=== PATIENT | male | born 1965 | race Caucasian/White ===

== ENCOUNTER 2017-08-01 06:02 | Inpatient (IN) ==
[~2017-08-01 06:02] MED LIST: ASPIRIN 325 MG TABLET PO ONE; DIAZEPAM 5 MG TABLET PO ONE; MAGNESIUM SULF RIDER 2 GM in PREMIX 1 EACH IV PRN; POTASSIUM CHLORIDE RIDER 10 MEQ in PREMIX 1 EACH IV PRN; SODIUM CHLORIDE 0.9% 1,000 ML IV SCH; diphenhydrAMINE CAP 25 MG CAPSULE PO ONE
[2017-08-01] MEDS ORDERED: diphenhydrAMINE CAP 25 MG CAPSULE ONE (07:15)
[2017-08-01] MEDS ORDERED: DIAZEPAM 5 MG TABLET ONE (07:15)
[2017-08-01] MEDS ORDERED: ASPIRIN 325 MG TABLET ONE (07:15)
[2017-08-01] MEDS ORDERED: MEPERIDINE 25 MG/1 ML VIAL ONE (07:27)
[2017-08-01] MEDS ORDERED: LIDOCAINE 1% 20 ML VIAL ONE (07:27)
[2017-08-01] MEDS ORDERED: MIDAZOLAM 2 MG/2 ML VIAL ONE (07:32)
[2017-08-01] MEDS ORDERED: HEPARIN 5,000 UNIT/1 ML VIAL ONE (07:43)
[2017-08-01] MEDS ORDERED: ONDANSETRON 4 MG/2 ML VIAL IV PRN (09:25)
[2017-08-01] MEDS ORDERED: ACETAMINOPHEN 325 MG TABLET PO PRN (09:25)
[2017-08-01] MEDS ORDERED: MAGNESIUM SULF RIDER 4 GM in PREMIX 1 EACH IV PRN (09:25)
[2017-08-01] MEDS ORDERED: MAGNESIUM SULF RIDER 2 GM in PREMIX 1 EACH IV PRN (09:25)
[2017-08-01] MEDS: PANTOPRAZOLE 40 MG TABLET PO SCH (10:42)
[2017-08-01] MEDS: CARVEDILOL 6.25 MG TABLET PO SCH ×2 (10:43→21:37)
[2017-08-01] MEDS ORDERED: ENOXAPARIN 30 MG/0.3 ML SYRINGE SUBCUT ONE (13:15)
[2017-08-01] MEDS ORDERED: MAGNESIUM HYDROXIDE SUSP 30 ML UDCUP PO PRN (17:17)
[2017-08-01] MEDS ORDERED: diphenhydrAMINE CAP 25 MG CAPSULE PO PRN (17:18)
[2017-08-01] MEDS: FAMOTIDINE 20 MG TABLET PO SCH (21:37)
[2017-08-02 04:59] LABS: Basophils # 0.1 10*3/uL (0.0-0.2); Basophils % 0.7 % (0.0-0.8); Eosinophils # 0.1 10*3/uL (0.0-0.87); Eosinophils % 0.7 % (0.00-10.9); Hematocrit 44.3 VOL% (42.0-52.0); Immature Granulocytes % 0.4 %; Immature Granulocytes Absolute 0.04 #; Lymphocytes # 2.7 10*3/uL (1.4-4.0); Mean Corpuscular HGB Conc 33.9 GM/DL (32-36); Mean Corpuscular Hemoglobin 30 PG (27-34); Mean Platelet Volume 10.3 FL (9.6-12.0); Monocytes # 0.9 10*3/uL (0.11-0.8); Monocytes % 9.7 % (1.7-12.7); Neutrophils # 5.8 10*3/uL (1.4-7.4); Neutrophils % 60.5 % (38.7-73.9); Platelet Count 220 T/CUMM (130-400); Red Blood Count 5.09 MC/CUMM (3.8-5.5); Red Cell Distribution Width 13.1 % (9.3-17.3); White Blood Count 9.5 T/CUMM (4-12)
[2017-08-02 05:38] LABS: Albumin 3.9 G/DL (3.4-5.0); Bilirubin,Total 1.2 MG/DL (0.2-1.0); Calcium 8.8 MG/DL (8.5-10.1); Osmolality,Calculated 282.1 MOS/KG (273-304); Potassium 3.9 MMOL/L (3.5-5.1); Total Protein 6.8 G/DL (6.4-8.3)
[2017-08-02] MEDS: FAMOTIDINE 20 MG TABLET PO SCH (08:52)
[2017-08-02] MEDS: PANTOPRAZOLE 40 MG TABLET PO SCH (08:52)
[2017-08-02] MEDS: CARVEDILOL 6.25 MG TABLET PO SCH (08:52)
[2017-08-02] MEDS ORDERED: amLODIPine 5 MG TABLET PO SCH (09:00)
[2017-08-02] MEDS ORDERED: ROSUVASTATIN 10 MG TABLET PO SCH (09:00)
[2017-08-02] MEDS ORDERED: ASPIRIN 325 MG TABLET PO SCH (09:00)
[2017-08-02] MEDS ORDERED: ENOXAPARIN 40 MG/0.4 ML SYRINGE SUBCUT SCH (09:00)
[2017-08-02 12:12] VITALS: BP 133/75
[2017-08-02] MEDS ORDERED: ROSUVASTATIN 20 MG TABLET PO SCH (12:48)
[2017-08-02] MEDS ORDERED: NITROGLYCERIN SL 0.4 MG TABLET SL PRN (12:52)
[2017-08-02] MEDS ORDERED: LOSARTAN 25 MG TABLET PO SCH (21:00)
[2017-08-03] MEDS ORDERED: LOSARTAN 50 MG TABLET PO SCH (09:00)
[2017-08-06] MEDS ORDERED: CEFUROXIME INJ 1,500 MG in SYRINGE 1 EACH IV ONE (06:00)
== END 2017-08-02 14:30 | disposition home or self-care, planned readmission (81) | DRG 287 ==
LOC: N.CL 06:02 → N.TELEN 08:52
PROVIDERS: ADMIT Internal Medicine Cardiovascular Disease; ATTEND Internal Medicine Cardiovascular Disease
PROC: CLCCHCL (ICD-10-PCS; 2017-08-01 07:45)

== ENCOUNTER 2017-08-06 06:07 | Inpatient (IN) ==
[2017-08-02 16:32] LABS: PT Patient Result 10.5 SECS; Partial Thromboplastin Time 28.4 SECS (0-40)
[2017-08-02 17:16] LABS: Apearance,Urine CLEAR (Clear); Bilirubin,Urine Negative (Negative); Blood, Urine Small mg/dL (Negative); Glucose,Urine (UA) Negative (Negative); Ketones,Urine Negative (Negative); Mucus,Urine Occasional /LPF (Occasional); Nitrite,Urine Negative (Negative); Protein,Urine Negative; RBC,Urine 1 /HPF (0-4); Squamous Epithelial Cell,Urine Occasional /HPF (0-10); Urine Color Yellow (Yellow); Urine Specific Gravity 1.018 (1.001-1.035); Urine Urobilinogen < 2.0 EU/DL (0.2-1.0); WBC,Urine 1 /HPF (0-6)
[~2017-08-06 06:07] MED LIST changes: -ASPIRIN 325 MG TABLET PO ONE; +FAMOTIDINE 20 MG TABLET PO ONE; -MAGNESIUM SULF RIDER 2 GM in PREMIX 1 EACH IV PRN; +PAPAVERINE 60 MG/2 ML VIAL ONE; -POTASSIUM CHLORIDE RIDER 10 MEQ in PREMIX 1 EACH IV PRN; +SODIUM CHLORIDE 0.9% 1,000 ML IV PRN; -SODIUM CHLORIDE 0.9% 1,000 ML IV SCH; +TISSUE ADHESIVE 1 EACH APPLICATOR TOP ONE; +VANCOMYCIN 1,000 MG VIAL ONE; -diphenhydrAMINE CAP 25 MG CAPSULE PO ONE
[2017-08-06] MEDS ORDERED: SODIUM CHLORIDE 0.9% 1,000 ML IV PRN (06:19)
[2017-08-06] MEDS ORDERED: DIAZEPAM 5 MG TABLET ONE (06:36)
[2017-08-06] MEDS ORDERED: FAMOTIDINE 20 MG TABLET ONE (06:36)
[2017-08-06] MEDS ORDERED: CEFUROXIME 1,500 MG VIAL ONE (07:05)
[2017-08-06 07:44] LABS: ABG Base Excess 0.5 MMOL/L (-2.5-2.5); ABG HCO3 24.9 MMOL/L (20-26); ABG PCO2 56.9 MM HG (35-48); ABG PH 7.306 (7.35-7.45); ABG TCO2 24.7 MMOL/L (23-27); Glucose Heart Surgery 112 MG/DL (74-106); Hematocrit Heart Surgery 43.8 PERCENT (42-52); Hemoglobin Heart Surgery 14.3 G/DL (14.0-18.0); PCO2 Patient Temp Arterial 56.9 MMHG; PH Patient Temp Arterial 7.306; Patient Temperature 37 CELCIUS; Potassium Heart/CVR 3.5 MMOL/L (3.5-5.1); Sodium Heart/CVR 142 MMOL/L (135-145)
[2017-08-06 07:46] LABS: ABG Oxygen Saturation 99.5 % (95-100)
[2017-08-06 07:52] LABS: Apearance,Urine CLEAR (Clear); Bilirubin,Urine Negative (Negative); Blood, Urine Small mg/dL (Negative); Glucose,Urine (UA) Negative (Negative); Ketones,Urine 5 mg/dL (Negative); Mucus,Urine Occasional /LPF (Occasional); Nitrite,Urine Negative (Negative); Protein,Urine Negative; RBC,Urine 7 /HPF (0-4); Urine Color Yellow (Yellow); Urine Specific Gravity 1.026 (1.001-1.035); WBC,Urine 1 /HPF (0-6)
[2017-08-06] MEDS ORDERED: CALCIUM CHLORIDE 1,000 MG/10 ML SYRINGE IV ONE (08:14)
[2017-08-06] MEDS ORDERED: POTASSIUM CHLORIDE RIDER 100 ML IV ONE (08:14)
[2017-08-06] MEDS ORDERED: EPINEPHrine 1 MG/10 ML SYRINGE ONE (08:14)
[2017-08-06] MEDS ORDERED: ALBUMIN 5% 12.5 GM/250 ML VIAL IV ONE (08:14)
[2017-08-06] MEDS ORDERED: SODIUM BICARBONATE 50 MEQ/50 ML SYRINGE IV ONE ×2 (08:14→11:13)
[2017-08-06 10:03] LABS: PCO2 Patient Temp Venous 37.3 MM HG; PH Patient Temp Venous 7.442; PO2 Patient Temp Venous 44.2 MM HG; Potassium Heart/CVR 3.9 MMOL/L (3.5-5.1); VBG Base Excess 1.5 MEQ/L (0-4); VBG HCO3 25.6 MEQ/L (24-28); VBG PCO2 41.1 MMHG (41-51); VBG PH 7.413; VBG PO2 50.7 MMHG (17-40)
[2017-08-06] MEDS ORDERED: THROMBIN TOPICAL (RECOMBINANT) 5,000 UNIT VIAL TOP ONE ×2 (10:15→11:30)
[2017-08-06 10:35] LABS: Hematocrit Heart Surgery 31.6 PERCENT (42-52); Hemoglobin Heart Surgery 10.2 G/DL (14.0-18.0); PCO2 Patient Temp Venous 36.6 MM HG; PH Patient Temp Venous 7.459; PO2 Patient Temp Venous 41.2 MM HG; Potassium Heart/CVR 4.2 MMOL/L (3.5-5.1); VBG Base Excess 2.3 MEQ/L (0-4); VBG HCO3 26.1 MEQ/L (24-28); VBG Oxygen Saturation 80.3 %; VBG PCO2 36.6 MMHG (41-51); VBG PH 7.459; VBG PO2 41.2 MMHG (17-40)
[2017-08-06 11:03] LABS: Hemoglobin Heart Surgery 11.1 G/DL (14.0-18.0); PCO2 Patient Temp Venous 35.1 MM HG; PH Patient Temp Venous 7.466; PO2 Patient Temp Venous 42.5 MM HG; VBG Base Excess 1.3 MEQ/L (0-4); VBG HCO3 24.7 MEQ/L (24-28); VBG Oxygen Saturation 78.7 %; VBG PCO2 35.1 MMHG (41-51); VBG PH 7.466; VBG PO2 42.5 MMHG (17-40)
[2017-08-06] MEDS ORDERED: methylPREDNISolone SOD SUC 1,000 MG/8 ML VIAL ONE (11:13)
[2017-08-06] MEDS ORDERED: HEPARIN 10,000 UNIT/10 ML VIAL ONE (11:13)
[2017-08-06] MEDS ORDERED: MAGNESIUM SULFATE 1 GM/2 ML VIAL ONE (11:13)
[2017-08-06] MEDS ORDERED: ALBUMIN 25% 25 GM/100 ML VIAL IV ONE (11:13)
[2017-08-06] MEDS ORDERED: DEXTROSE 5% KCL 20 MEQ 20 MEQ/1,000 ML BAG IV ONE (11:13)
[2017-08-06] MEDS ORDERED: PROTAMINE SULFATE 250 MG/25 ML VIAL IV ONE (11:13)
[2017-08-06] MEDS ORDERED: FUROSEMIDE 20 MG/2 ML VIAL ONE (11:14)
[2017-08-06] MEDS ORDERED: PROTAMINE SULFATE 50 MG/5 ML VIAL IV ONE (11:14)
[2017-08-06] MEDS ORDERED: PHENYLEPHRINE 10 MG/1 ML VIAL IV ONE ×2 (11:14→12:37)
[2017-08-06] MEDS ORDERED: MANNITOL 12.5 GM/50 ML VIAL IV ONE (11:14)
[2017-08-06 11:20] LABS: ABG Base Excess -0.4 MMOL/L (-2.5-2.5); ABG HCO3 24.1 MMOL/L (20-26); ABG PH 7.416 (7.35-7.45); ABG TCO2 21.3 MMOL/L (23-27); Glucose Heart Surgery 183 MG/DL (74-106); Ionized Calcium Arterial 1.26 MMOL/L (1.21-1.46); PH Patient Temp Arterial 7.416; Patient Temperature 37 CELCIUS; Potassium Heart/CVR 3.6 MMOL/L (3.5-5.1); Sodium Heart/CVR 137 MMOL/L (135-145)
[2017-08-06 11:21] LABS: ABG Oxygen Saturation 99.7 % (95-100)
[2017-08-06] MEDS ORDERED: POTASSIUM CHLORIDE RIDER 20 MEQ in PREMIX 1 EACH IV PRN (12:13)
[2017-08-06] MEDS ORDERED: CHLORHEXIDINE 4% SOLN 118 ML BOTTLE TOP PRN (12:13)
[2017-08-06] MEDS ORDERED: DEXTROSE 50% 25 GM/50 ML VIAL IV PRN ×2 (12:13)
[2017-08-06] MEDS ORDERED: MAGNESIUM SULF RIDER 2 GM in PREMIX 1 EACH IV PRN (12:13)
[2017-08-06] MEDS ORDERED: SODIUM CHLORIDE 0.9% 250 ML IV PRN (12:13)
[2017-08-06] MEDS ORDERED: ACETAMINOPHEN 650 MG SUPP RECTAL PRN (12:13)
[2017-08-06] MEDS ORDERED: MAGNESIUM SULF RIDER 4 GM in PREMIX 1 EACH IV PRN (12:13)
[2017-08-06] MEDS ORDERED: POTASSIUM CHLORIDE RIDER 10 MEQ in PREMIX 1 EACH IV PRN (12:13)
[2017-08-06] MEDS ORDERED: INSULIN REGULAR 100 UNIT/ML IV PRN (12:13)
[2017-08-06] MEDS ORDERED: CALCIUM CHLORIDE 1,000 MG/10 ML SYRINGE IV PRN (12:13)
[2017-08-06] MEDS ORDERED: MIDAZOLAM 2 MG/2 ML VIAL IV PRN (12:13)
[2017-08-06] MEDS ORDERED: INSULIN REGULAR DRIP 100 ML IV SCH (12:30)
[2017-08-06] MEDS: SODIUM CHLORIDE 0.45% 1,000 ML IV SCH (12:30)
[2017-08-06] MEDS ORDERED: SODIUM CHLORIDE 0.45% 1,000 ML IV SCH (12:30)
[2017-08-06] MEDS ORDERED: SEVOFLURANE 1 UNIT/15 MINUTE INH ONE (12:35)
[2017-08-06] MEDS ORDERED: CALCIUM CHLORIDE 1,000 MG/10 ML VIAL IV ONE (12:35)
[2017-08-06] MEDS ORDERED: HEPARIN/NACL 0.9% 2 UNITS/ML 500 ML IV ONE (12:35)
[2017-08-06] MEDS ORDERED: MIDAZOLAM 10 MG/2 ML VIAL ONE (12:36)
[2017-08-06] MEDS ORDERED: SUFentanil 250 MCG/5 ML AMP ONE (12:36)
[2017-08-06] MEDS ORDERED: EPINEPHrine 1 MG/ML VIAL ONE (12:36)
[2017-08-06] MEDS ORDERED: ePHEDrine 50 MG/ML AMP ONE (12:36)
[2017-08-06] MEDS ORDERED: TRANEXAMIC ACID 1,000 MG/10 ML VIAL IV ONE (12:37)
[2017-08-06] MEDS ORDERED: GLYCOPYRROLATE 0.4 MG/2 ML VIAL ONE (12:37)
[2017-08-06] MEDS ORDERED: VECURONIUM 10 MG VIAL IV ONE (12:37)
[2017-08-06] MEDS ORDERED: ETOMIDATE 40 MG/20 ML VIAL IV ONE (12:37)
[2017-08-06] MEDS ORDERED: NITROGLYCERIN DRIP 50 MG/250 ML BOTTLE IV ONE (12:38)
[2017-08-06] MEDS ORDERED: SODIUM CHLORIDE 0.9% 500 ML IV ONE (12:38)
[2017-08-06] MEDS ORDERED: SODIUM CHLORIDE 0.9% 100 ML IV ONE (12:38)
[2017-08-06] MEDS ORDERED: LACTATED RINGERS 1,000 ML IV ONE (12:38)
[2017-08-06] MEDS ORDERED: SODIUM CHLORIDE 0.9% 1,000 ML IV ONE (12:38)
[2017-08-06 12:54] LABS: ABG Base Excess 0.6 MMOL/L (-2.5-2.5); ABG HCO3 25.9 MMOL/L (20-26); ABG Oxygen Saturation 97.1 % (95-100); ABG PH 7.387 (7.35-7.45); ABG PO2 98.4 MM HG (80-95); ABG TCO2 27.2 MMOL/L (23-27); Glucose Heart Surgery 130 MG/DL (74-106); Potassium Heart/CVR 3.5 MMOL/L (3.5-5.1)
[2017-08-06 12:59] LABS: Basophils % 0.4 % (0.0-0.8); Eosinophils % 0.3 % (0.00-10.9); Hematocrit 35.7 VOL% (42.0-52.0); Hemoglobin 12.3 GM/DL (14.0-18.0); Lymphocytes # 1.1 10*3/uL (1.4-4.0); Lymphocytes % 10.8 % (21.2-54.2); Mean Corpuscular HGB Conc 34.5 GM/DL (32-36); Mean Corpuscular Hemoglobin 30 PG (27-34); Mean Corpuscular Volume 87.5 FL (87-102); Mean Platelet Volume 10.2 FL (9.6-12.0); Monocytes # 0.6 10*3/uL (0.11-0.8); Monocytes % 6.2 % (1.7-12.7); Neutrophils # 8.2 10*3/uL (1.4-7.4); Neutrophils % 81.3 % (38.7-73.9); Platelet Count 187 T/CUMM (130-400); Red Blood Count 4.08 MC/CUMM (3.8-5.5); Red Cell Distribution Width 13.1 % (9.3-17.3); White Blood Count 10.1 T/CUMM (4-12)
[2017-08-06 13:10] LABS: INR 1.1; PT Patient Result 11.6 SECS; Partial Thromboplastin Time 34.3 SECS (0-40)
[2017-08-06 13:16] LABS: Lactic Acid 1.5 MMOL/L (0.4-2.0)
[2017-08-06 13:22] LABS: Calcium 8.1 MG/DL (8.5-10.1); Osmolality,Calculated 284.3 MOS/KG (273-304); Potassium 3.7 MMOL/L (3.5-5.1)
[2017-08-06] MEDS: MORPHINE 10 MG/1 ML VIAL IV PRN ×3 (15:43→22:29)
[2017-08-06 16:18] LABS: ABG Base Excess -0.3 MMOL/L (-2.5-2.5); ABG HCO3 24.1 MMOL/L (20-26); ABG Oxygen Saturation 96.4 % (95-100); ABG PCO2 48.4 MM HG (35-48); ABG PH 7.342 (7.35-7.45); ABG PO2 86.2 MM HG (80-95); ABG TCO2 22.6 MMOL/L (23-27); Glucose Heart Surgery 169 MG/DL (74-106); Hematocrit Heart Surgery 45.1 PERCENT (42-52); Hemoglobin Heart Surgery 14.7 G/DL (14.0-18.0); Potassium Heart/CVR 4.3 MMOL/L (3.5-5.1)
[2017-08-06] MEDS ORDERED: METOPROLOL TARTRATE 5 MG/5 ML VIAL IV ONE ×2 (16:50→16:54)
[2017-08-06] MEDS ORDERED: METOPROLOL TARTRATE 5 MG/5 ML VIAL IV PRN (17:58)
[2017-08-06] MEDS ORDERED: NITROPRUSSIDE 100 MG in DEXTROSE 5% 246 ML IV SCH (20:00)
[2017-08-06] MEDS ORDERED: NITROGLYCERIN DRIP 50 MG/250 ML BOTTLE IV SCH (20:00)
[2017-08-06] MEDS: MORPHINE 2 MG/1 ML SYRINGE IV PRN (20:09)
[2017-08-06] MEDS: INSULIN REGULAR 100 UNIT/ML SUBCUT SCH (20:25)
[2017-08-06] MEDS: CEFUROXIME INJ 1,500 MG in SYRINGE 1 EACH IV SCH (20:26)
[2017-08-06] MEDS: CHLORHEXIDINE 0.12% ORAL RINSE 60 ML BOTTLE SWISH/SPIT SCH (20:26)
[2017-08-06] MEDS: ONDANSETRON 4 MG/2 ML VIAL IV PRN (20:55)
[2017-08-06] MEDS: ALBUMIN 5% 12.5 GM in PREMIX 1 EACH IV PRN ×2 (22:28→22:50)
[2017-08-07] MEDS: INSULIN REGULAR 100 UNIT/ML SUBCUT SCH ×6 (00:46→22:27)
[2017-08-07] MEDS: SODIUM CHLORIDE 0.45% 1,000 ML IV SCH (01:36)
[2017-08-07 03:29] LABS: Basophils % 0.1 % (0.0-0.8); Hematocrit 34.9 VOL% (42.0-52.0); Hemoglobin 11.9 GM/DL (14.0-18.0); Immature Granulocytes % 0.4 %; Immature Granulocytes Absolute 0.05 #; Lymphocytes % 9.3 % (21.2-54.2); Mean Corpuscular HGB Conc 34.1 GM/DL (32-36); Mean Corpuscular Hemoglobin 30 PG (27-34); Mean Corpuscular Volume 87.7 FL (87-102); Mean Platelet Volume 10.4 FL (9.6-12.0); Monocytes # 0.6 10*3/uL (0.11-0.8); Monocytes % 5.4 % (1.7-12.7); Neutrophils # 9.4 10*3/uL (1.4-7.4); Neutrophils % 84.8 % (38.7-73.9); Platelet Count 221 T/CUMM (130-400); Red Blood Count 3.98 MC/CUMM (3.8-5.5); Red Cell Distribution Width 13.1 % (9.3-17.3); White Blood Count 11.1 T/CUMM (4-12)
[2017-08-07] MEDS: MORPHINE 2 MG/1 ML SYRINGE IV PRN ×4 (03:29→20:45)
[2017-08-07 03:44] LABS: Calcium 8.2 MG/DL (8.5-10.1); Osmolality,Calculated 285.3 MOS/KG (273-304); Potassium 4.1 MMOL/L (3.5-5.1)
[2017-08-07] MEDS ORDERED: FUROSEMIDE 40 MG TABLET PO ONE (06:18)
[2017-08-07] MEDS ORDERED: FUROSEMIDE 40 MG/4 ML VIAL IV ONE (06:23)
[2017-08-07] MEDS: CEFUROXIME INJ 1,500 MG in SYRINGE 1 EACH IV SCH ×2 (07:50→20:42)
[2017-08-07] MEDS: ALBUTEROL/IPRATROPIUM 3 ML NEB RESP TX SCH ×5 (07:51→23:57)
[2017-08-07] MEDS: LOSARTAN 25 MG TABLET PO SCH ×2 (08:45→20:44)
[2017-08-07] MEDS: CLOPIDOGREL 75 MG TABLET PO SCH (08:45)
[2017-08-07] MEDS: CHLORHEXIDINE 0.12% ORAL RINSE 60 ML BOTTLE SWISH/SPIT SCH ×2 (08:45→20:51)
[2017-08-07] MEDS: ASPIRIN EC 325 MG TABLET PO SCH ×2 (11:06→11:21)
[2017-08-07] MEDS: METOPROLOL TARTRATE 25 MG TABLET PO SCH ×2 (11:06→20:44)
[2017-08-07] MEDS: FUROSEMIDE 40 MG TABLET PO SCH (12:12)
[2017-08-07] MEDS: ONDANSETRON 4 MG/2 ML VIAL IV PRN (14:47)
[2017-08-07] MEDS: ATORVASTATIN 40 MG TABLET PO SCH (20:54)
[2017-08-08] MEDS: INSULIN REGULAR 100 UNIT/ML SUBCUT SCH ×6 (01:04→20:35)
[2017-08-08] MEDS: MORPHINE 2 MG/1 ML SYRINGE IV PRN (02:32)
[2017-08-08] MEDS: ALBUTEROL/IPRATROPIUM 3 ML NEB RESP TX SCH ×5 (02:50→20:50)
[2017-08-08 04:59] LABS: Basophils % 0.1 % (0.0-0.8); Hematocrit 36.2 VOL% (42.0-52.0); Hemoglobin 12.5 GM/DL (14.0-18.0); Immature Granulocytes % 0.7 %; Immature Granulocytes Absolute 0.11 #; Lymphocytes # 1.6 10*3/uL (1.4-4.0); Lymphocytes % 9.3 % (21.2-54.2); Mean Corpuscular HGB Conc 34.5 GM/DL (32-36); Mean Corpuscular Hemoglobin 30 PG (27-34); Mean Corpuscular Volume 86.6 FL (87-102); Mean Platelet Volume 10.6 FL (9.6-12.0); Monocytes # 1.8 10*3/uL (0.11-0.8); Monocytes % 10.8 % (1.7-12.7); Neutrophils # 13.2 10*3/uL (1.4-7.4); Neutrophils % 79.1 % (38.7-73.9); Platelet Count 263 T/CUMM (130-400); Red Blood Count 4.18 MC/CUMM (3.8-5.5); Red Cell Distribution Width 13.2 % (9.3-17.3); White Blood Count 16.7 T/CUMM (4-12)
[2017-08-08 05:47] LABS: Calcium 8.5 MG/DL (8.5-10.1); Osmolality,Calculated 282.4 MOS/KG (273-304); Potassium 4.1 MMOL/L (3.5-5.1)
[2017-08-08] MEDS: LOSARTAN 25 MG TABLET PO SCH ×2 (09:12→21:02)
[2017-08-08] MEDS: CLOPIDOGREL 75 MG TABLET PO SCH (09:12)
[2017-08-08] MEDS: CARVEDILOL 6.25 MG TABLET PO SCH ×2 (09:12→21:02)
[2017-08-08] MEDS: ASPIRIN EC 325 MG TABLET PO SCH (09:12)
[2017-08-08] MEDS: FUROSEMIDE 40 MG TABLET PO SCH (09:13)
[2017-08-08] MEDS: CHLORHEXIDINE 0.12% ORAL RINSE 60 ML BOTTLE SWISH/SPIT SCH ×2 (09:13→21:03)
[2017-08-08] MEDS: ATORVASTATIN 40 MG TABLET PO SCH (21:01)
[2017-08-09] MEDS: INSULIN REGULAR 100 UNIT/ML SUBCUT SCH ×4 (00:35→12:58)
[2017-08-09] MEDS: ALBUTEROL/IPRATROPIUM 3 ML NEB RESP TX SCH ×4 (01:17→11:41)
[2017-08-09 05:24] LABS: Basophils % 0.1 % (0.0-0.8); Eosinophils % 0.1 % (0.00-10.9); Hematocrit 35.5 VOL% (42.0-52.0); Hemoglobin 11.9 GM/DL (14.0-18.0); Immature Granulocytes % 0.7 %; Lymphocytes # 2.4 10*3/uL (1.4-4.0); Lymphocytes % 17.7 % (21.2-54.2); Mean Corpuscular HGB Conc 33.5 GM/DL (32-36); Mean Corpuscular Hemoglobin 30 PG (27-34); Mean Corpuscular Volume 88.5 FL (87-102); Mean Platelet Volume 10.4 FL (9.6-12.0); Monocytes # 1.8 10*3/uL (0.11-0.8); Monocytes % 13.6 % (1.7-12.7); Neutrophils # 9.2 10*3/uL (1.4-7.4); Neutrophils % 67.8 % (38.7-73.9); Platelet Count 248 T/CUMM (130-400); Red Blood Count 4.01 MC/CUMM (3.8-5.5); Red Cell Distribution Width 13.1 % (9.3-17.3); White Blood Count 13.5 T/CUMM (4-12)
[2017-08-09 05:53] LABS: Calcium 8.8 MG/DL (8.5-10.1); Osmolality,Calculated 284.3 MOS/KG (273-304)
[2017-08-09] MEDS ORDERED: BISACODYL 5 MG TABLET PO ONE (07:08)
[2017-08-09] MEDS ORDERED: DOCUSATE SODIUM 100 MG CAPSULE PO ONE (07:09)
[2017-08-09] MEDS ORDERED: SODIUM PHOSPHATE ENEMA 133 ML BOTTLE RECTAL ONE (07:10)
[2017-08-09] MEDS: CLOPIDOGREL 75 MG TABLET PO SCH (08:58)
[2017-08-09] MEDS: LOSARTAN 25 MG TABLET PO SCH ×2 (08:58→20:25)
[2017-08-09] MEDS: FUROSEMIDE 40 MG TABLET PO SCH (08:59)
[2017-08-09] MEDS: ASPIRIN EC 325 MG TABLET PO SCH (08:59)
[2017-08-09] MEDS: CHLORHEXIDINE 0.12% ORAL RINSE 60 ML BOTTLE SWISH/SPIT SCH ×2 (08:59→20:26)
[2017-08-09] MEDS: CARVEDILOL 6.25 MG TABLET PO SCH ×2 (08:59→20:26)
[2017-08-09] MEDS: LEVALBUTEROL 1.25 MG/3 ML NEB RESP TX SCH ×3 (14:17→23:56)
[2017-08-09] MEDS: ATORVASTATIN 40 MG TABLET PO SCH (20:26)
[2017-08-10] MEDS: LEVALBUTEROL 1.25 MG/3 ML NEB RESP TX SCH ×3 (03:06→10:40)
[2017-08-10 05:18] LABS: Basophils % 0.3 % (0.0-0.8); Eosinophils # 0.1 10*3/uL (0.0-0.87); Eosinophils % 1.1 % (0.00-10.9); Hematocrit 38.1 VOL% (42.0-52.0); Hemoglobin 12.8 GM/DL (14.0-18.0); Immature Granulocytes Absolute 0.13 #; Lymphocytes # 3.2 10*3/uL (1.4-4.0); Lymphocytes % 25.8 % (21.2-54.2); Mean Corpuscular HGB Conc 33.6 GM/DL (32-36); Mean Corpuscular Hemoglobin 29 PG (27-34); Mean Corpuscular Volume 87.2 FL (87-102); Mean Platelet Volume 10.4 FL (9.6-12.0); Monocytes # 1.2 10*3/uL (0.11-0.8); Neutrophils # 7.7 10*3/uL (1.4-7.4); Neutrophils % 61.8 % (38.7-73.9); Platelet Count 289 T/CUMM (130-400); Red Blood Count 4.37 MC/CUMM (3.8-5.5); Red Cell Distribution Width 12.9 % (9.3-17.3); White Blood Count 12.4 T/CUMM (4-12)
[2017-08-10 05:39] LABS: Giant Platelets Few; Hypochromasia 1+; Microcytosis Slight; Platelet Estimate Adequate
[2017-08-10 05:53] LABS: Calcium 8.8 MG/DL (8.5-10.1); Osmolality,Calculated 284.3 MOS/KG (273-304)
[2017-08-10 08:22] VITALS: BP 124/80
[2017-08-10] MEDS: LOSARTAN 25 MG TABLET PO SCH (09:06)
[2017-08-10] MEDS: FUROSEMIDE 40 MG TABLET PO SCH (09:06)
[2017-08-10] MEDS: CLOPIDOGREL 75 MG TABLET PO SCH (09:06)
[2017-08-10] MEDS: ASPIRIN EC 325 MG TABLET PO SCH (09:06)
[2017-08-10] MEDS: CARVEDILOL 6.25 MG TABLET PO SCH (09:07)
[2017-08-10] MEDS: CHLORHEXIDINE 0.12% ORAL RINSE 60 ML BOTTLE SWISH/SPIT SCH (09:07)
== END 2017-08-10 11:45 | disposition home health service (06) | DRG 236 ==
LOC: N.SDSINP 06:07 → N.CVR 07:03 → N.ICU 08-07 07:12 → N.TELES 08-07 15:23
PROVIDERS: ADMIT Thoracic Surgery (Cardiothoracic Vascular Surgery); ATTEND Thoracic Surgery (Cardiothoracic Vascular Surgery)

== ENCOUNTER 2018-05-30 13:09 | Observation (INO) ==
[2018-05-30] MEDS ORDERED: NITROGLYCERIN SL 0.4 MG TABLET SL PRN (14:01)
[2018-05-30] MEDS ORDERED: ENOXAPARIN 100 MG/ML SYRINGE SUBCUT STA (14:01)
[2018-05-30 14:03] LABS: Troponin I < 0.015 NG/ML (0.00-0.045)
[2018-05-30 14:08] LABS: Basophils # 0.1 10*3/uL (0.0-0.2); Eosinophils # 0.1 10*3/uL (0.0-0.87); Eosinophils % 2.3 % (0.00-10.9); Hematocrit 46.4 VOL% (42.0-52.0); Hemoglobin 15.7 GM/DL (14.0-18.0); Immature Granulocytes % 0.3 %; Immature Granulocytes Absolute 0.02 #; Lymphocytes # 1.5 10*3/uL (1.4-4.0); Lymphocytes % 24.6 % (21.2-54.2); Mean Corpuscular HGB Conc 33.8 GM/DL (32-36); Mean Corpuscular Hemoglobin 29 PG (27-34); Mean Corpuscular Volume 86.6 FL (87-102); Mean Platelet Volume 10.8 FL (9.6-12.0); Monocytes # 0.6 10*3/uL (0.11-0.8); Monocytes % 9.7 % (1.7-12.7); Neutrophils # 3.7 10*3/uL (1.4-7.4); Neutrophils % 62.1 % (38.7-73.9); Platelet Count 248 T/CUMM (130-400); Red Blood Count 5.36 MC/CUMM (3.8-5.5); Red Cell Distribution Width 13.2 % (9.3-17.3)
[2018-05-30 14:21] LABS: Albumin 3.9 G/DL (3.4-5.0); Bilirubin,Total 0.9 MG/DL (0.2-1.0); Calcium 9.1 MG/DL (8.5-10.1); Osmolality,Calculated 281.3 MOS/KG (273-304); Total Protein 7.8 G/DL (6.4-8.3)
[2018-05-30] MEDS: ASPIRIN EC 81 MG TABLET PO SCH ×2 (17:58→19:11)
[2018-05-30] MEDS: FAMOTIDINE 20 MG TABLET PO SCH (20:41)
[2018-05-30] MEDS: CARVEDILOL 6.25 MG TABLET PO SCH (20:41)
[2018-05-30] MEDS ORDERED: ATORVASTATIN 40 MG TABLET PO SCH (21:00)
[2018-05-31 04:02] LABS: Basophils # 0.1 10*3/uL (0.0-0.2); Basophils % 0.9 % (0.0-0.8); Eosinophils # 0.1 10*3/uL (0.0-0.87); Eosinophils % 1.5 % (0.00-10.9); Hematocrit 40.9 VOL% (42.0-52.0); Hemoglobin 13.9 GM/DL (14.0-18.0); Immature Granulocytes % 0.3 %; Immature Granulocytes Absolute 0.02 #; Lymphocytes # 2.7 10*3/uL (1.4-4.0); Lymphocytes % 34.7 % (21.2-54.2); Mean Corpuscular Hemoglobin 29 PG (27-34); Mean Corpuscular Volume 86.1 FL (87-102); Mean Platelet Volume 10.5 FL (9.6-12.0); Monocytes # 0.7 10*3/uL (0.11-0.8); Monocytes % 9.5 % (1.7-12.7); Neutrophils # 4.2 10*3/uL (1.4-7.4); Neutrophils % 53.1 % (38.7-73.9); Platelet Count 212 T/CUMM (130-400); Red Blood Count 4.75 MC/CUMM (3.8-5.5); Red Cell Distribution Width 13.1 % (9.3-17.3); White Blood Count 7.8 T/CUMM (4-12)
[2018-05-31 04:29] LABS: Calcium 8.5 MG/DL (8.5-10.1); Potassium 3.5 MMOL/L (3.5-5.1)
[2018-05-31 04:32] LABS: Risk Ratio 3.88; VLDL CHOLESTEROL 29.6 MG/DL
[2018-05-31] MEDS ORDERED: EZETIMIBE 10 MG TABLET PO SCH (09:00)
[2018-05-31] MEDS ORDERED: FUROSEMIDE 20 MG TABLET PO SCH (09:00)
[2018-05-31] MEDS: FAMOTIDINE 20 MG TABLET PO SCH (09:02)
[2018-05-31] MEDS: ASPIRIN EC 81 MG TABLET PO SCH (09:02)
[2018-05-31] MEDS: CARVEDILOL 6.25 MG TABLET PO SCH (09:03)
[2018-05-31 15:46] VITALS: BP 126/77
== END 2018-05-31 15:50 | disposition home or self-care (01) ==
LOC: N.ED 13:09 → N.TELEN 13:09 → SUATTDRO 14:49 → N.TELEN 16:34
PROVIDERS: ADMIT Internal Medicine Cardiovascular Disease; ATTEND Internal Medicine Nephrology